=== PATIENT | female | born 1960 | race Caucasian/White ===

== ENCOUNTER 2016-12-19 11:09 | Observation (INO) | payer OTHER ==
[2016-12-19] MEDS ORDERED: ASPIRIN 81 MG CHEWABLE TAB PO ONE (11:10)
--- NOTE | 2016-12-19 11:20 | CPEKG ---
Heart Rate: 67 RR Interval: 896 P-R Interval: 144 QRSD Interval: 76 QT Interval: 408 QTC Interval: 431 P [place]: 67 QRS [place]: 61 T Wave [place]: 22 EKG Severity - NORMAL ECG - EKG Impression: SINUS RHYTHM Electronically Signed By: Ernesto Sin 19-Dec-2016 15:02:23
[2016-12-19] MEDS ORDERED: MAG HYDROX/AL HYDROX/SIMETH 30 ML UDCUP PO ONE (11:31)
[2016-12-19] MEDS ORDERED: HYOSCYAMINE SULFATE 0.125 MG TAB PO ONE (11:31)
[2016-12-19 11:37] LABS: % IMMATURE GRANULYOCYTES 0.3 % (0.0-1.1); ABSOLUTE IMMATURE GRANULOCYTES 0.02 10^3/uL (0.00-0.10); ADD DIFF? NO; ADD MORPH? NO; ADD SCAN? NO; ATYPICAL LYMPHOCYTE FLAG 0 (0-99); FRAGMENT RBC FLAG 0 (0-99); HEMOGLOBIN 14.2 g/dL (12.6-16.3); LEFT SHIFT FLG 0 (0-99); LIPEMIA HEMOLYSIS FLAG 90 (0-99); MEAN CELL HEMOGLOBIN 30.2 pg (27.9-34.1); MEAN CELL HEMOGLOBIN CONCENTR. 34.6 g/dL (32.4-36.7); MEAN CELL VOLUME 87.2 fL (81.5-99.8); MEAN PLATELET VOLUME 11.9 fL (8.7-11.7); PLATELET CLUMPS FLAG 0 (0-99); PLATELET COUNT 182 10^3/uL (150-400); RED CELL DISTRIBUTION WIDTH 13.3 % (11.5-15.2)
[2016-12-19 11:44] LABS: ANION GAP 12 mEq/L (8-16); CALCIUM 9.5 mg/dL (8.5-10.4); CARBON DIOXIDE 21 mEq/l (22-31); CHLORIDE 108 mEq/L (97-110); CREATININE 0.7 mg/dL (0.6-1.0); GLOMERULAR FILTRATION RATE > 60; GLUCOSE 99 mg/dL (70-100); POTASSIUM 4.1 mEq/L (3.5-5.2); SODIUM 141 mEq/L (134-144)
[2016-12-19 11:56] LABS: TROPONIN I < 0.012 ng/mL (0-0.034)
--- NOTE | 2016-12-19 12:00 | EDPHY ---
H & P Stated Complaint: rt arm pain last noc radiating to rt jaw. today left ant cp pressure Time Seen by Provider: 12/19/16 11:13 HPI/ROS: This patient describes right arm pain last night that was burning in nature and radiated to her right neck. She states that she took ibuprofen and sat upright in bed and felt improvement in her symptoms was able to then go to sleep. The peak intensity the pain was 8/10 but she awakened with no pain this morning. However, while driving to work at 6:30 a.m. she developed substernal chest tightness radiating to the left neck this morning 3/10 intensity at its peak and currently 1 or 2/10. She reports having had mild shortness of breath last night but none this morning. She does not recall having these types of pains in the past. She notes no exacerbating or alleviating factors other than the improvement with positional changes noted. She does feel anxious with her symptoms. She reports having a long history of acid reflux symptoms including recently. She takes omeprazole as needed [id number] for her symptoms. She drove herself here by private vehicle for further evaluation. ROS: Constitutional: Positive fatigue for 2 weeks. No fevers or chills. No other complaints HEENT: She has coryza in sneezing over the past 2 days. Pulmonary: Occasional cough she attributes to postnasal drip. No pleuritic pain. No significant dyspnea Cardiovascular: No heart palpitations. No leg swelling or pain. GI: No abdominal pain, nausea or vomiting. She reports normal bowel movements recently. 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 Neuro: She has tingling in her hands that she attributes to carpal tunnel syndrome. No new neuro symptoms. Complete review of symptoms is otherwise negative. Source: Patient Exam Limitations: No limitations - Medical/Surgical History Hx Asthma: No Hx Chronic Respiratory Disease: No Hx Diabetes: No Hx Cardiac Disease: No Hx Renal Disease: No Hx Cirrhosis: No Hx Alcoholism: No Hx HIV/AIDS: No Hx Splenectomy or Spleen Trauma: No Other PMH: med hx-untreated hypercholesterolemia. surg-tony - Family History Significant Family History: Heart disease (Her father had an KS in his 60s.) - Social History Smoking Status: Light smoker (The patient smokes 7 cigarettes a day) Alcohol Use: None Drug Use: None - Physical Exam Exam: General Appearance: Alert, no distress. Eyes: Pupils equal and round no pallor or injection. ENT, Mouth: Mucous membranes moist. Respiratory: There are no retractions, lungs are clear to auscultation. Cardiovascular: Regular rate and rhythm. No murmur gallop rub. No leg swelling or tenderness. No JVD. She has no chest wall tenderness. Gastrointestinal: Abdomen is soft and nontender, no masses, bowel sounds normal. Neurological: GCS 15 with no focal deficits. Skin: Warm and dry, no rashes. Musculoskeletal: Neck is supple nontender. Extremities are symmetrical, full range of motion. Psychiatric: Mood and affect normal DIFFERENTIAL DIAGNOSIS: After history and physical exam differential diagnosis was considered for GERD with esophageal spasm, anxiety, mi, angina, pneumonia, pneumothorax, PE, dissecting aortic aneurysm Constitutional: Initial Vital Signs Temperature (C) 36.9 C 12/19/16 11:12 Heart Rate 74 12/19/16 11:12 Respiratory Rate 18 12/19/16 11:12 Blood Pressure 141/88 H 12/19/16 11:12 O2 Sat (%) 96 12/19/16 11:12 O2 Delivery Mode Room Air Allergies/Adverse Reactions: No Known Allergies Allergy (Verified 12/19/16 16:35) Home Medications: Medication Instructions Recorded Ibuprofen [Motrin (*)] 600 mg PO DAILY PRN 12/19/16 Omeprazole 20 mg PO DAILY PRN 12/19/16 Medical Decision Making - Diagnostics EKG Interpretation: 12 lead EKG performed at 11:19 a.m. indication chest pain Sinus rhythm at 67 Intervals: Normal throughout [place]: Normal throughout ST segments: Normal throughout Overall assessment normal EKG Repeat EKG performed at 12:54 p.m. indication chest pain free after nitroglycerin evaluate for interval change reveals sinus bradycardia at 55 Intervals normal [place]: Normal ST segments: Normal Overall assessment normal EKG no interval change Imaging Results: Chest x-ray: Mild airway disease consistent with smoking by my interpretation. No focal infiltrates. No cardiomegaly. Imaging: I viewed and interpreted images myself ED Course/Re-evaluation: IV, monitor Aspirin 324 Maalox some Levsin p.o. without change in her discomfort Supple nitroglycerin with resolution of chest pain followed by recurrence back to mild substernal chest pain Nitropaste placed with resolution again of chest pain. She remained stable on the monitor thereafter Discussion: This patient has coronary artery disease risk factors of untreated hypercholesterolemia, family history of KS and smoking. Her chest pain is concerning for potential angina. No current evidence of acute KS-normal EKGs, normal troponin. Her D-dimer is negative. Her chest x-ray is nonfocal. Other considerations for the cause of her pain include GERD with esophageal spasm. No evidence of pneumonia or pneumothorax. Given the patient's coronary disease risk factors and relief of her discomfort with nitro with symptoms characteristic of angina, she warrants admission for further workup and treatment. I discussed the case with Dr. Mike, chainman who agrees with plan for admission for further workup. I spoke with Dr. Biggs, hospitalist accepts patient for transfer to [facility] for further observation and workup. - Data Points Laboratory Results: Laboratory Results 12/19/16 11:10 12/19/16 11:10 Medications Given: Discontinued Medications Al Hydroxide/Mg Hydroxide (Maalox Susp) 30 ml PO EDNOW ONE Stop: 12/19/16 11:32 Last Admin: 12/19/16 11:39 Dose: 30 ml Aspirin (Aspirin) 324 mg PO EDNOW ONE Stop: 12/19/16 11:11 Last Admin: 12/19/16 11:20 Dose: 324 mg Aspirin Buffered (Aspirin Ec) 325 mg PO ONCALL ONE Stop: 12/20/16 11:02 Last Admin: 12/20/16 12:44 Dose: Not Given Diazepam (Valium) 5 mg PO ONCALL ONE Stop: 12/20/16 11:02 Last Admin: 12/20/16 12:44 Dose: Not Given Diphenhydramine HCl (Benadryl) 25 mg PO ONCALL ONE Stop: 12/20/16 11:02 Last Admin: 12/20/16 12:44 Dose: Not Given Famotidine (Pepcid) 20 mg PO ONCALL ONE Stop: 12/20/16 11:02 Last Admin: 12/20/16 12:44 Dose: Not Given Hyoscyamine Sulfate (Levsin, Hyomax-Sl) 0.125 mg PO EDNOW ONE Stop: 12/19/16 11:32 Last Admin: 12/19/16 11:39 Dose: 0.125 mg Sodium Chloride (Ns) 1,000 mls @ 0 mls/hr IV ONCE ONE PRN Reason: Wide Open Stop: 12/19/16 12:41 Last Admin: 12/19/16 12:41 Dose: 1,000 mls Sodium Chloride (Ns) 1,000 mls @ 0 mls/hr IV ONCE ONE PRN Reason: Wide Open Stop: 12/19/16 14:11 Last Admin: 12/19/16 14:10 Dose: 1,000 mls Sodium Chloride (Ns) 1,000 mls @ 0 mls/hr IV ONCALL ONE PRN Reason: TKO Stop: 12/20/16 11:02 Last Admin: 12/20/16 12:44 Dose: Not Given Nitroglycerin (Nitrostat) 0.4 mg SL EDNOW ONE Stop: 12/19/16 12:27 Last Admin: 12/19/16 12:38 Dose: 0.4 mg Nitroglycerin (Nitro-Bid 2%) 0.5 inch TP EDNOW ONE Stop: 12/19/16 13:07 Last Admin: 12/19/16 13:20 Dose: 0.5 inch Departure - Departure Disposition: [facility] Inpatient Acute Clinical Impression: Acute chest pain Condition: Good
[2016-12-19] MEDS ORDERED: NITROGLYCERIN 0.4 MG BTL SL ONE (12:26)
[2016-12-19] MEDS ORDERED: NS 1,000 ML IV ONE ×2 (12:40→14:10)
--- NOTE | 2016-12-19 12:56 | CPEKG ---
Heart Rate: 55 RR Interval: 1091 P-R Interval: 144 QRSD Interval: 78 QT Interval: 440 QTC Interval: 421 P [place]: 52 QRS [place]: 52 T Wave [place]: 19 EKG Severity - NORMAL ECG - EKG Impression: SINUS RHYTHM Electronically Signed By: Ernesto Sin 19-Dec-2016 15:02:10
[2016-12-19] MEDS ORDERED: NITROGLYCERIN 2% 1 GM PACKET TP ONE (13:06)
--- NOTE | 2016-12-19 14:17 | PDGENHP ---
History and Physical History and Physical: CC: Chest pain HISTORY: This patient who is previously healthy with no history of heart disease went to bed last night and shortly thereafter experienced a dull ache in her left upper arm that went up into the left neck and jaw and then involved a upper central anterior chest pressure. There is no pleuritic pain but she did feel somewhat dyspneic without nausea or diaphoresis. This lasted perhaps an hour and then eventually abated as she fell asleep. She slept well through the night and felt well upon arising this morning. However while driving to work she had onset of the same upper central chest pressure associated with a sense of dyspnea. There been no palpitations, no fevers or cough, no pain or swelling in the legs that she is aware of. She has never had this before. There been no antecedent symptoms. No other abnormal findings on acute symptoms and evaluation She is a smoker of 3 packs of cigarettes per week, has high cholesterol, and both of her parents had their 1st myocardial infarction in their 60s. She is not diabetic or hypertensive ROS: A comprehensive 10 system review revealed no other significant findings PAST MEDICAL HISTORY: Arthritis Chronic dyspepsia Obesity Tobacco abuse FAMILY MEDICAL HISTORY: Coronary artery disease with myocardial infarctions in both parents in their 60s SOCIAL HISTORY: She has a lot of stress related to her situation at work. 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 7 cigarettes per day MEDICATIONS: The patients list has been reconciled by our clinical pharmacist in the EMR. I have reviewed the list and ordered appropriate medicines. 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, no focal weakness IV site: looks normal LABORATORY DATA: 1st troponin is normal, D-dimer normal, Chem panel unremarkable RADIOLOGY STUDIES: I reviewed the chest x-ray images done at the other facility and this shows to me and normal chest x-ray without heart failure pleural effusions or abnormalities of cardiac silhouette and no lung infiltrates 12 LEAD EKG: My reading of the tracing is a normal 12 lead EKG with sinus rhythm ASSESSMENT: -2 episodes at rest of acute pain consistent with angina pectoralis in the absence of any previous heart disease -1st troponin EKG normal, sinus rhythm without hemodynamic instability or heart failure -risk factors for coronary disease include family, tobacco, lipids PLANS: Bringing the hospital on observation status Rule out myocardial infarction with serial troponins EKG quality assurance monitor final with blood pressure monitoring Unless she has more suggestive signs of coronary disease will plan on a treadmill stress test in the morning I have reviewed the patient's case in detail with Dr. Ernesto Sin
[2016-12-19] MEDS ORDERED: ONDANSETRON DISINTEGRATING 4 MG TAB PO PRN (15:53)
[2016-12-19] MEDS ORDERED: ZOLPIDEM TARTRATE 5 MG TAB PO PRN (15:53)
[2016-12-19] MEDS ORDERED: ACETAMINOPHEN 325 MG TAB PO PRN (15:53)
[2016-12-19] MEDS ORDERED: ONDANSETRON 4 MG/2 ML VIAL IVP PRN (15:53)
--- NOTE | 2016-12-20 09:01 | CPEKG ---
Heart Rate: 56 RR Interval: 1071 P-R Interval: 148 QRSD Interval: 80 QT Interval: 420 QTC Interval: 406 P [place]: 72 QRS [place]: 78 T Wave [place]: 49 EKG Severity - ABNORMAL ECG - EKG Impression: SINUS RHYTHM EKG Impression: POSSIBLE OLD LATERAL INFARCT. Electronically Signed By: Mason Waldrop 20-Dec-2016 17:59:21
[2016-12-20] MEDS ORDERED: NON-FORMULARY NEW DRUG (Omeprazole [Omeprazole] 20 MG) PO PRN (10:14)
[2016-12-20] MEDS ORDERED: IBUPROFEN 200 MG TAB PO PRN (10:14)
[2016-12-20] MEDS ORDERED: IBUPROFEN 600 MG TAB PO PRN (10:19)
[2016-12-20] MEDS ORDERED: PANTOPRAZOLE SODIUM 40 MG TAB PO PRN (10:20)
[2016-12-20] MEDS ORDERED: LIDOCAINE 1% 300 MG/30 ML SDV ONE (10:41)
[2016-12-20] MEDS ORDERED: fentaNYL 100 MCG/2 ML INJ ONE (10:42)
[2016-12-20] MEDS ORDERED: MIDAZOLAM 2 MG/2 ML VIAL ONE ×2 (10:42)
[2016-12-20] MEDS ORDERED: IOPAMIDOL (ISOVUE-370) 150 ML BTL IV ONE (10:43)
[2016-12-20] MEDS ORDERED: ASPIRIN EC 325 MG TAB PO ONE ×2 (11:01→11:42)
[2016-12-20] MEDS ORDERED: DIAZEPAM 5 MG TAB PO ONE (11:01)
[2016-12-20] MEDS ORDERED: diphenhydrAMINE 25 MG CAP PO ONE ×2 (11:01→11:42)
[2016-12-20] MEDS ORDERED: FAMOTIDINE 20 MG TAB PO ONE (11:01)
[2016-12-20] MEDS ORDERED: NS 1,000 ML IV ONE (11:01)
[2016-12-20] MEDS ORDERED: VERAPAMIL 5 MG/2 ML VIAL ONE (11:40)
[2016-12-20] MEDS ORDERED: HEPARIN 10,000 UNIT/10 ML MDV ONE (11:40)
[2016-12-20] MEDS ORDERED: FAMOTIDINE 20 MG TAB ONE (11:42)
[2016-12-20 11:43] VITALS: TEMP 97.7
[2016-12-20] MEDS ORDERED: DIAZEPAM 5 MG TAB ONE (11:43)
[2016-12-20] MEDS ORDERED: NITROGLYCERIN 0.4 MG BTL SL PRN (12:30)
[2016-12-20] MEDS ORDERED: ATROPINE SULFATE 1 MG/10 ML SYR IVP PRN (12:30)
--- NOTE | 2016-12-20 12:34 | PDDXCAT ---
Diagnostic Cath Note - . Date: 12/20/16 Padded Products Finisher: [place] Indication: CCC Class III and IV angina on medical treatment, other (Moderate risk treadmill) - Procedure Access: right wrist Procedure: left heart catheterization, coronary angiography, other (Abdominal aortagram with bilateral run off.) - Findings-Left Heart Catheterization LM: Normal LAD: Normal LCX: Dominant: Normal RCA: Non dominant: Normal Complications: None Estimated blood loss: <50ml Closure method: TR Band Assessment: 1. Angiographically normal coronary arteries. 2. No significant atheroma of the abdominal aorta, bilateral iliacs, superficial femoral arteries to the trifurcation. 3. Chest pain syndrome of uncertain etiology. Plan: Aggressive primary prevention. Patient Problems: Problems Problem Status Onset Acute chest pain Acute
--- NOTE | 2016-12-20 13:36 | CPR ---
[f rep st] NONINVASIVE CARDIAC PROCEDURE REPORT DATE OF PROCEDURE: 12/20/2016 PROCEDURE: Exercise treadmill test. INDICATION: The patient is a 56-year-old female with a history of ongoing tobacco use and a family history of coronary artery disease. Last night she developed right arm discomfort which radiated in to her neck which persisted for a few hours. She took an ibuprofen which did improve her discomfort . The following morning, she woke up with chest discomfort that she described as a tightness and sh rosalinda pain. She denies any exertional chest discomfort but does not do any physical activity. She lai s been under a lot of stress. DESCRIPTION OF PROCEDURE: Consent was obtained and the patient was placed on continuous telemetry. Her resting EKG revealed sinus bradycardia with a heart rate of 53, [place] interval 129, QRS duration o f 397. She walked on the treadmill for 7 minutes. 2 minutes into exercise she complained of signif icant chest discomfort and bilateral leg pain. She did continue to walk and her chest pain reached a 10/10 at peak exertion. She remained in normal sinus rhythm throughout the study and developed fl at ST depression in the inferior and anterior leads of approximately half a millimeter. PLAN: The patient has multiple risk factory for coronary artery disease, including ongoing tobacco use and family history of CAD. Her mother had bypass surgery in her 60s and her father had an NM in his 60s. She had significant chest discomfort which she rated 10/10 with exertion on the treadmill as well as bilateral leg discomfort. At this point, I would recommend proceeding with a cardiac ca theterization for definitive diagnosis. At the time of her catheterization, a peripheral angiogram could also be done to assess for peripheral vascular disease. /[id number]/MODL
[2016-12-20 14:07] VITALS: BP 102/67; PULSE 45; RESP 12; O2SAT 93
--- NOTE | 2016-12-20 16:47 | GDS ---
[f rep st] DISCHARGE SUMMARY DIAGNOSES: 1. Chest pain, noncardiac. 2. Arthritis. 3. Chronic dyspepsia. 4. Tobacco abuse. CONSULTATIONS: Cardiology. PROCEDURES DONE: 1. Exercise stress test, patient had onset of chest pain 2 minutes into her stress test. 2. Left heart catheterization, coronary angiography and abdominal aortogram with bilateral runoff w ith angiographically normal coronary arteries, no significant atheroma of the abdominal aorta, bilat eral iliac, superficial femoral arteries to the trifurcation. HOSPITAL COURSE: The patient is a healthy 56-year-old woman who came in with chest pain. She had t he above procedures done which revealed noncardiac cause of her chest pain. She was advised to stop smoking and to increase her exercise tolerance. She is otherwise doing well with no recurrent pain at the time of discharge. CONDITION ON DISCHARGE: Good. Vital signs are stable. Heart rate 45, blood pressure 102/67, she i s 93% on room air. She is alert and oriented. Heart is regular. Lungs are clear. DISCHARGE MEDICATIONS: She will resume her home medications. No additional medications were provid ed. FOLLOWUP: She has a followup scheduled for a well-woman exam on Monday. She should keep that appoi ntment. /[id number]/MODL
== END 2016-12-20 15:19 | disposition home or self-care (01) ==
LOC: CED 11:09 → CEDHOLD 13:11 → F2W 15:05
PROVIDERS: ADMIT Internal Medicine; ATTEND Internal Medicine
PROC: B41DZZZ Fluoroscopy of Aorta and Bilateral Lower Extremity Arteries (ICD-10-PCS; principal; 2016-12-19)
PROC: B2111ZZ Fluoroscopy of Multiple Coronary Arteries using Low Osmolar Contrast (ICD-10-PCS; principal; 2016-12-19)
PROC: 4A023N7 Measurement of Cardiac Sampling and Pressure, Left Heart, Percutaneous Approach (ICD-10-PCS; principal; 2016-12-19)
DX: R07.9 Chest pain, unspecified (principal); E78.5 Hyperlipidemia, unspecified; K30 Functional dyspepsia; F17.200 Nicotine dependence, unspecified, uncomplicated; Z82.49 Family history of ischemic heart disease and other diseases of the circulatory system
CPT/HCPCS: 71020; 75625; 93005; 93017; 93454; C1769; G0378; 80048-PO; 84484-PO; 85025-PO; 85378-PO; J1644; J2250; J3010; Q9967